=== PATIENT | male | born 1980 | race Caucasian/White ===

== ENCOUNTER 2017-10-02 15:02 | Emergency (ER) | payer BC, MEDICAID ==
--- NOTE | 2017-10-02 15:19 | ER Document Report ---
ED General - General Information source: Patient TRAVEL OUTSIDE OF THE [place] IN LAST 30 DAYS: No <SANDY MEDELLIN - Last Filed: 10/02/17 23:27> <JORIELOISAHOUSTON - Last Filed: 10/02/17 23:27> - General Stated Complaint: SWELLING IN LEFT FOOT Time Seen by Provider: 10/02/17 15:07 Notes: 37 y.o male presents the ED s/p injury to his left foot. Pt reports that he was working on his car tire with his LT foot under the car when the mitzi slipped and the car landed on his LT foot close to the ankle. He denies any numbness or tingling. He denies other medical history. Denies tetanus vaccination is up to date. (SANDY MEDELLIN) - Related Data Allergies/Adverse Reactions: No Known Allergies Allergy (Verified 10/02/17 16:44) Past Medical History - General Information source: Patient - Social History Smoking Status: Never Smoker Cigarette use (# per day): No Chew tobacco use (# tins/day): Yes Frequency of alcohol use: Rare Drug Abuse: None Family History: Arthritis, CAD, DM, Hyperlipidemia, Hypertension. denies: CVA Pulmonary Medical History: Denies: Hx Asthma Neurological Medical History: Denies: Hx Migraine Endocrine Medical History: Denies: Hx Diabetes Mellitus Type 2 Musculoskeltal Medical History: Reports Hx Arthritis - Chronic back pain, Reports Hx Musculoskeletal Deformity, Reports Hx Musculoskeletal Trauma - Fractured finger Traumatic Medical History: Reports: Hx Fractures - Finger fracture Past Surgical History: Reports: Hx Cholecystectomy - Immunizations Hx Diphtheria, Pertussis, Tetanus Vaccination: No <SANDY MEDELLIN - Last Filed: 10/02/17 23:27> Review of Systems - Review of Systems Constitutional: No symptoms reported EENT: No symptoms reported Cardiovascular: No symptoms reported Respiratory: No symptoms reported Gastrointestinal: No symptoms reported Genitourinary: No symptoms reported Male Genitourinary: No symptoms reported Musculoskeletal: See HPI, Other - LT foot/ ankle injury Skin: Other - abrasion to LLE Hematologic/Lymphatic: No symptoms reported Neurological/Psychological: No symptoms reported -: Yes All other systems reviewed and negative <SANDY MEDELLIN - Last Filed: 10/02/17 23:27> Physical Exam <SANDY MEDELLIN - Last Filed: 10/02/17 23:27> <HOUSTON HAWK - Last Filed: 10/02/17 23:27> - Vital signs Vitals: Temp Pulse Resp BP Pulse Ox 99.0 F 80 18 145/80 H 95 10/02/17 15:08 10/02/17 15:08 10/02/17 15:08 10/02/17 15:08 10/02/17 15:08 - Notes Notes: PHYSICAL EXAM GENERAL: Alert, interacts well. No acute distress. HEAD: Normocephalic, atraumatic. EYES: Pupils equal, round, and reactive to light. Extraocular movements intact. ENT: Oral mucosa moist, tongue midline. NECK: Full range of motion. Supple. Trachea midline. LUNGS: No respiratory distress. ABDOMEN: Non-distended. EXTREMITIES: LT ankle and foot without obvious deformity. Tenderness to the dorsal aspect across all metatarsals. Lateral and medial malleolus tenderness to palpation. Edema anterior to the lateral malleolus. Dorsalis pedis pulses 2/ 4 bilaterally. NEUROLOGICAL: Alert and oriented x3. Normal speech. Biceps and patellar DTRs 2+ bilaterally. PSYCH: Normal affect, normal mood. SKIN: Warm, dry, normal turgor. Superficial abrasions to the dorsal aspect of foot. (SANDY MEDELLIN) Course <SANDY MEDELLIN - Last Filed: 10/02/17 23:27> <HOUSTON HAWK - Last Filed: 10/02/17 23:27> - Re-evaluation Re-evalutation: 10/02/17 16:11 Minimal evidence of trauma, x-rays are negative, there is a small amount of swelling, patient will be placed in an Brian wrap to control swelling, recommended take anti-inflammatories, placed on crutches for rest and discharged home. (HOUSTON HAWK) - Vital Signs Vital signs: Temp Pulse Resp BP Pulse Ox 99.3 F 81 16 119/69 97 10/02/17 16:34 10/02/17 16:34 10/02/17 16:34 10/02/17 16:34 10/02/17 16:34 Procedures - Immobilization left ankle Pre-Proc Neuro Vasc Exam: Normal Immobilizer type: Brian wrap Performed by: RN, PCT Post-Proc Neuro Vasc Exam: Normal, Unchanged from pre-exam Alignment checked and good: Yes <HOUSTON HAWK - Last Filed: 10/02/17 23:27> Discharge <SANDY MEDELLIN - Last Filed: 10/02/17 23:27> <HOUSTON HAWK - Last Filed: 10/02/17 23:27> - Discharge Clinical Impression: Abrasion, left ankle, initial encounter Contusion of left ankle Qualifiers: Encounter type: initial encounter Qualified Code(s): S90.02XA - Contusion of left ankle, initial encounter Condition: Stable Disposition: HOME, SELF-CARE Additional Instructions: There were no broken bones in your x-ray today. I do not suspect a sprain based off of your exam. We have placed you in an Brian wrap and crutches because there is some bruising and swelling. Please use the Brian wrap for as long as you are having significant pain. Please use ibuprofen (Motrin or Advil) 600-800 mg every 8 hours as needed for pain. You may also use acetaminophen (Tylenol) 1000 mg every 4-6 hours as needed for pain. Please be aware that many medications contain acetaminophen, do not exceed a total of 1000 mg of acetaminophen every 6 hours. Forms: Special Work Note, Return to Work Referrals: DEBBIE MAYS MD [ACTIVE STAFF] - Follow up in 1 week Scribe Attestation: 10/02/17 23:27 I personally performed the services described in the documentation, reviewed and edited the documentation which was dictated to the scribe in my presence, and it accurately records my words and actions. (HOUSTON HAWK) Scribe Documentation - Scribe Written by Latisha:: Latisha Womack 10/02/2017 1610 acting as scribe for :: Jodi <SANDY MEDELLIN - Last Filed: 10/02/17 23:27>
[2017-10-02] MEDS ORDERED: FENTANYL CITRATE INJ/PF 100 MCG/2 ML AMPUL IV ONE (15:35)
[2017-10-02] MEDS ORDERED: DIPH/PERTUSS(ACELL)/TETANUS VAC/PF 0.5 ML SYR (>=10YO) IM ONE (15:36)
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
[2017-10-02] MEDS ORDERED: KETOROLAC TROMETHAMINE 60 MG/2 ML SDV IV ONE (16:20)
[2017-10-02 16:43] VITALS: BP 119/69
== END 2017-10-02 16:43 | disposition home or self-care (01) ==
LOC: ER 15:02
DX: S90.02XA Contusion of left ankle, initial encounter (principal); S90.812A Abrasion, left foot, initial encounter; W20.8XXA Other cause of strike by thrown, projected or falling object, initial encounter; Y93.89 Activity, other specified
CPT/HCPCS: 99284; 90471; 96374; 96375; 73610; 73630; 90715; J1885; J3010